=== PATIENT | female | born 1995 | race Caucasian/White ===

== ENCOUNTER 2018-07-19 07:46 | Outpatient (CLI) | payer BC ==
--- NOTE | 2018-07-19 09:03 | CT ---
CT ABDOMEN AND PELVIS WITH ORAL AND IV CONTRAST: HISTORY: Abdominal pain, periumbilical. Chronic diarrhea. FINDINGS: The lung bases are clear. The liver, spleen, pancreas, adrenal glands, and kidneys are normal. No c alcified gallstones are seen. No free air, free fluid, or lymphadenopathy is noted in the abdomen or pelvis. The small bowel loops are not abnormally dilated. A normal appearing appendix is present. There is thickening of the wall of the proximal ascending colon. Uterus and ovaries are present. 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 No associate d soft tissue mass is seen. IMPRESSION: 1. No evidence of acute appendicitis. 2. Nonspecific wall thickening of the proximal ascending colon. Colonoscopy is recommended. 3. Left iliac bone exostosis. POS: [facility]
== END 2018-07-19 07:47 | disposition home or self-care (01) ==
LOC: CT 07:46
PROVIDERS: ATTEND Internal Medicine
DX: K52.9 Noninfective gastroenteritis and colitis, unspecified (principal); R10.33 Periumbilical pain; K63.89 Other specified diseases of intestine; M89.9 Disorder of bone, unspecified
CPT/HCPCS: 74177